=== PATIENT | female | born 1950 | race Caucasian/White ===

== ENCOUNTER → 2018-05-13 16:25 | Outpatient (CLI) | payer MEDICARE, OTHER, SELFPAY | PROVIDERS: Visit Provider Physician Assistant | DX: R30.0 Dysuria (principal) | CPT/HCPCS: 87077; 87086; 87186 ==

== ENCOUNTER 2018-11-26 20:49 | Emergency (ER) | payer MEDICARE, OTHER, SELFPAY ==
[2018-11-26 20:53] VITALS: BP 161/84; PULSE 91; RESP 15; TEMP 36.5; O2SAT 96
--- NOTE | 2018-11-26 20:58 | ED.FALL ---
HPI - Fall General Chief Complaint: Fall Stated Complaint: HEAD AND ARM INJURY S/P FALL Time Seen by Provider: 11/26/18 20:50 Source: patient and family Mode of arrival: ambulatory Limitations: no limitations History of Present Illness HPI Narrative: 68-year-old female nonsmoker with a history of diabetes, hyperlipidemia and hypothyroidism presents with a mechanical fall in which she fell, struck her head and injured her left wrist. She was on her boat and caring multiple objects which threw her off balance, she fell forward into the cock-up 8 and struck the left side of her head. She did not suffer a loss of consciousness, has no nausea or vomiting and takes no blood thinners. She has full recall of the event and denies any prodromal symptoms. She denies any alcohol or street drugs. She is acting at her baseline per her daughter. Additionally she fell onto an outstretched left wrist and has pain, particularly with any range of motion. MD complaint: fall Onset (ago): hour(s) Fall from: standing Fall witnessed: yes, by family Place fall occurred: other Loss of consciousness: none Prolonged down time: no Symptoms prior to fall: none Context: tripped/slipped Location of injury: head Location of injury - extremities: Left: arm Related Data Home Medications Medication Instructions Recorded Confirmed atorvastatin PO 05/13/18 05/13/18 buspirone PO 05/13/18 05/13/18 levothyroxine 125 mcg tablet 125 mcg PO DAILY 05/13/18 05/13/18 metformin PO 05/13/18 05/13/18 venlafaxine PO 05/13/18 05/13/18 Allergies Allergy/AdvReac Type Severity Reaction Status Date / Time Penicillins [PENICILLINS] Allergy Unknown Verified 11/26/18 20:58 Sulfa (Sulfonamide Allergy Unknown Verified 11/26/18 20:58 Antibiotics) [SULFA (SULFONAMIDE ANTIBIOTICS)] Review of Systems Constitutional Denies chills, Denies fever(s), Reports headache(s), Denies lethargy and Denies weakness Eyes Denies change in vision, Denies eye discharge, Denies irritation and Denies loss of vision ENT Ears, Nose, Mouth, and Throat: Denies change in voice, Reports headache(s), Denies neck pain and Denies sore throat Cardiovascular Denies chest pain, Denies irregular heart rhythm, Denies lightheadedness, Denies palpitations, Denies dyspnea, Denies dyspnea on exertion and Denies orthopnea Respiratory Denies cough, Denies dyspnea, Denies dyspnea on exertion and Denies wheezing Gastrointestinal Gastrointestinal: Denies abdominal pain, Denies change in bowel habits, Denies diarrhea, Denies nausea and Denies vomiting Genitourinary Denies hematuria, Denies flank pain, Denies urinary incontinence and Denies urinary urgency Musculoskeletal Reports joint swelling, Reports limited range of motion and Denies neck pain Integumentary/Breasts Denies pruritus, Denies erythema, Denies rash and Denies wounds Neurologic Denies confusion, Reports headache(s), Denies loss of vision and Denies weakness Psychiatric Denies anxiety, Denies confusion, Denies depression, Denies homicidal ideation and Denies suicidal ideation Endocrine Denies palpitations Hematologic/Lymphatic Denies easy bruising Allergic/Immunologic Denies wheezing Exam Narrative Exam Narrative: GENERAL: 68-year-old female appears stated age, GCS 15, obviously in pain and splinting her left wrist across her chest HEAD: Dried blood on left parietal is, when cleaned a 2 cm irregular laceration noted, relatively deep but no active bleeding, galea intact EYES: Pupils equal round and reactive. Extraocular motions intact. No scleral icterus. No injection or drainage. ENT: Nose without bleeding, purulent drainage or septal hematoma. Throat without erythema, tonsillar hypertrophy or exudate. Uvula midline. Airway patent. NECK: Trachea midline. No JVD or lymphadenopathy. Supple, nontender, no meningeal signs. CARDIOVASCULAR: Regular rate and rhythm without murmurs, gallops, or rubs. RESPIRATORY: Clear to auscultation. Breath sounds equal bilaterally. No wheezes, rales, or rhonchi. GASTROINTESTINAL: Abdomen soft, non-tender, nondistended. No hepato-splenomegaly, or palpable masses. No guarding. EXTREMITIES: No clubbing, cyanosis, or edema. No joint tenderness, effusion, or edema noted. BACK: Nontender without deformity or crepitance. No flank tenderness. NEURO: AOx3. SKIN: No rash or erythema. Initial Vital Signs Initial Vital Signs: Vital Signs Temperature 97.7 F 11/26/18 20:53 Pulse Rate 91 H 11/26/18 20:53 Respiratory Rate 15 11/26/18 20:53 Blood Pressure 161/84 H 11/26/18 20:53 Pulse Oximetry 96 11/26/18 20:53 PFS Social History Smoking Status: Never smoker Social History Smoking Status: Never smoker Procedures Laceration Repair Laceration 1: Site: scalp Side (If applicable): left Size (cm): 2 Description: stellate and irregular Depth: simple, single layer Local Anesthetic: lidocaine 1% and with epi Amount of anesthesia used (mL): 4 Pre-repair: wound explored, irrigated extensively and deep structures intact Skin layer closed with: arnav Orthopedic Splinting/Casting Injury #1: Side: left Upper Extremity Injury Location: wrist Upper Extremity Immobilizer: sling/shoulder immobilizer and sugar tong splint Post splinting neuro exam: intact Post splinting vascular exam: intact Placed by: Nursing Course Orders Ordered: ED Orders 11/26/18 20:59 CT head/brain wo con Stat 11/26/18 21:06 XR wrist LT min 3V Stat Discontinued Medications Hydrocodone Bitart/Acetaminophen (Vicodin Prepack) 1 bottle MISC SEEINSTR ONE Stop: 11/26/18 22:05 Last Admin: 11/26/18 22:12 Dose: 1 bottle Diphtheria/Tetanus/Acell Pertussis (Adacel) 0.5 ml IM .ONCE ONE Stop: 11/26/18 21:01 Last Admin: 11/26/18 21:05 Dose: 0.5 ml Vital Signs - 8 hr 11/26/18 20:53 11/26/18 22:12 Temperature 97.7 F Pulse Rate 91 H 71 Respiratory Rate 15 15 Blood Pressure 161/84 H Blood Pressure [Right Arm] 140/68 Pulse Oximetry 96 97 MDM - Fall Imaging Data CT scan - head: Radiologist's impression: Chart Viewer Diagnostics DATE TYPE STATUS AUTHOR Hx 11/26/18 21:06 James Estrella 11/26/18 20:59 James Estrella Marie A 68, F0 1950 DEP ER, ED.LOC - Main ED: R08 96.162kg Fall Search Chart No Data to Display ONSET 11/26/18 22:12 Ivonne Melendez F [address] [address] [address] Scan Report Signed Patient: Ivonne Melendez AMR#: [id number] : 1950cct:[id number] Age/Sex: 68 / FDate of Service: 11/26/18 Loc: ED Accession Number: [id number] Procedure: CT head/brain wo con Ordering Provider: Alverto Murillo D.O. PROCEDURE: CT HEAD/BRAIN WO CON INDICATIONS: head injury, bleeding, confusion TECHNIQUE: Noncontrast 4.5 mm thick angled axial sections acquired from the foramen magnum to the vertex, with coronal and sagittal reformats. For radiation dose reduction, the following was used: automated exposure control, adjustment of mA and/or kV according to patient size. COMPARISON: [facility], , STROKE PROTOCOL, 08/07/2014, 7:15. FINDINGS: Image quality: Excellent. CSF spaces: Basal cisterns are patent. No extra-axial fluid collections. The ventricles are symmetric in size and shape. Brain: No intracranial bleeds or masses. There is cerebral volume loss for age, with resultant ventricular and sulcal prominence. There are periventricular and deep white matter chronic small vessel ischemic changes. There is intracranial internal carotid artery atherosclerosis. Skull and face: Calvarium and visualized facial bones appear intact, without suspicious lesions. Sinuses: Visualized sinuses and mastoids are clear. IMPRESSION: No acute intracranial abnormality. Dictated by: James Estrella M.D. on 11/26/2018 at 21:37 Approved by: James Estrella M.D. on 11/26/2018 at 21:38 Wrist Xray: Radiologist's impression: Ivonne Melendez 68 F [address] [address] XRay Report Signed Patient: Ivonne Melendez AMR#: [id number] : 9Acct:[id number] Age/Sex: 68 / FDate of Service: 11/26/18 Loc: ED Accession Number: [id number] Procedure: XR wrist LT min 3V Ordering Provider: Alverto Murillo D.O. PROCEDURE: XR WRIST LT MIN 3V INDICATIONS: fall on outstretched wrist, pain over distal radius TECHNIQUE: 3 views of the wrist were acquired. COMPARISON: None. FINDINGS: Bones: Linear transverse lucency within the distal radial metaphysis. Joint space narrowing and periarticular osteophyte formation at the scaphotrapezial and first carpometacarpal joints. Scaphoid view: Not requested Soft tissues: No suspicious soft tissue calcifications. IMPRESSION: Distal radial fracture. Dictated by: James Estrella M.D. on 11/26/2018 at 21:36 Discharge Plan Departure Patient Disposition: Home Clinical Impression: Laceration of scalp Qualifiers: Encounter type: initial encounter Qualified Code(s): S01.01XA - Laceration without foreign body of scalp, initial encounter Distal radius fracture, left Qualifiers: Encounter type: initial encounter Fracture type: closed Fracture morphology: unspecified fracture morphology Qualified Code(s): S52.502A - Unspecified fracture of the lower end of left radius, initial encounter for closed fracture Discharge Date/Time: 11/26/18 22:22 Interventions: ED Discharge Assessment Last Done: 11/26/18 22:22 Instructions: How to Prevent Falls Activity Restrictions/Additional Instructions: Please keep the wound clean and dry to the best of your ability. Please monitor for signs of infection such as redness to the skin or increasing pain. Have the arnav removed by your doctor in about 7 days. If you are unable to get into your doctor, we would be happy to remove the arnav in that same timeframe. *You have been diagnosed with [scalp laceration and distal radius fracture] *What to do: *Take medications as directed *Follow up with [facility] in 2-3 days, call for an appointment. Let them know you were seen in the Emergency Department and that we ask that you be seen in follow up *Return to ER if you should have any new, worsening or concerning symptoms Prescriptions: No Action levothyroxine [Synthroid] 125 mcg tablet 125 mcg PO DAILY RF: 0 venlafaxine PO RF: 0 atorvastatin PO RF: 0 metformin PO RF: 0 buspirone PO RF: 0 Referrals: Vi Rasheed MD [Physician] -
[2018-11-26] MEDS: TET,DIPH,PERTUSS(ACELL),VAC/PF 0.5 ML SYRINGE IM (21:05)
--- NOTE | 2018-11-26 21:06 | DI.RAD.S_ITS ---
PROCEDURE: XR WRIST LT MIN 3V INDICATIONS: fall on outstretched wrist, pain over distal radius TECHNIQUE: 3 views of the wrist were acquired. COMPARISON: None. FINDINGS: Bones: Linear transverse lucency within the distal radial metaphysis. Joint space narrowing and periarticular osteophyte formation at the scaphotrapezial and first carpometacarpal joints. Scaphoid view: Not requested Soft tissues: No suspicious soft tissue calcifications. IMPRESSION: Distal radial fracture. Dictated by: James Estrella M.D. on 11/26/2018 at 21:36 Approved by: James Estrella M.D. on 11/26/2018 at 21:37
[2018-11-26 22:12] VITALS: BP 140/68; PULSE 71; RESP 15; O2SAT 97
[2018-11-26] MEDS: HYDROCODONE/ACET 5/325 PREPACK 1 BOTTLE MISC (22:12)
--- NOTE | 2018-11-27 02:51 | ED_ITS ---
HPI - Fall General Chief Complaint: Fall Stated Complaint: HEAD AND ARM INJURY S/P FALL Time Seen by Provider: 11/26/18 20:50 Source: patient and family Mode of arrival: ambulatory Limitations: no limitations History of Present Illness HPI Narrative: 68-year-old female nonsmoker with a history of diabetes, hyperlipidemia and hypothyroidism presents with a mechanical fall in which she fell, struck her head and injured her left wrist. She was on her boat and caring multiple objects which threw her off balance, she fell forward into the cock-up 8 and struck the left side of her head. She did not suffer a loss of consciousness, has no nausea or vomiting and takes no blood thinners. She has full recall of the event and denies any prodromal symptoms. She denies any alcohol or street drugs. She is acting at her baseline per her daughter. Additionally she fell onto an outstretched left wrist and has pain, particularly with any range of motion. MD complaint: fall Onset (ago): hour(s) Fall from: standing Fall witnessed: yes, by family Place fall occurred: other Loss of consciousness: none Prolonged down time: no Symptoms prior to fall: none Context: tripped/slipped Location of injury: head Location of injury - extremities: Left: arm Related Data Home Medications Medication Instructions Recorded Confirmed atorvastatin PO 05/13/18 05/13/18 buspirone PO 05/13/18 05/13/18 levothyroxine 125 mcg tablet 125 mcg PO DAILY 05/13/18 05/13/18 metformin PO 05/13/18 05/13/18 venlafaxine PO 05/13/18 05/13/18 Allergies Allergy/AdvReac Type Severity Reaction Status Date / Time Penicillins [PENICILLINS] Allergy Unknown Verified 11/26/18 20:58 Sulfa (Sulfonamide Allergy Unknown Verified 11/26/18 20:58 Antibiotics) [SULFA (SULFONAMIDE ANTIBIOTICS)] Review of Systems Constitutional Denies chills, Denies fever(s), Reports headache(s), Denies lethargy and Denies weakness Eyes Denies change in vision, Denies eye discharge, Denies irritation and Denies loss of vision ENT Ears, Nose, Mouth, and Throat: Denies change in voice, Reports headache(s), Denies neck pain and Denies sore throat Cardiovascular Denies chest pain, Denies irregular heart rhythm, Denies lightheadedness, Denies palpitations, Denies dyspnea, Denies dyspnea on exertion and Denies orthopnea Respiratory Denies cough, Denies dyspnea, Denies dyspnea on exertion and Denies wheezing Gastrointestinal Gastrointestinal: Denies abdominal pain, Denies change in bowel habits, Denies diarrhea, Denies nausea and Denies vomiting Genitourinary Denies hematuria, Denies flank pain, Denies urinary incontinence and Denies urinary urgency Musculoskeletal Reports joint swelling, Reports limited range of motion and Denies neck pain Integumentary/Breasts Denies pruritus, Denies erythema, Denies rash and Denies wounds Neurologic Denies confusion, Reports headache(s), Denies loss of vision and Denies weakness Psychiatric Denies anxiety, Denies confusion, Denies depression, Denies homicidal ideation and Denies suicidal ideation Endocrine Denies palpitations Hematologic/Lymphatic Denies easy bruising Allergic/Immunologic Denies wheezing Exam Narrative Exam Narrative: GENERAL: 68-year-old female appears stated age, GCS 15, obviously in pain and splinting her left wrist across her chest HEAD: Dried blood on left parietal is, when cleaned a 2 cm irregular laceration noted, relatively deep but no active bleeding, galea intact EYES: Pupils equal round and reactive. Extraocular motions intact. No scleral icterus. No injection or drainage. ENT: Nose without bleeding, purulent drainage or septal hematoma. Throat without erythema, tonsillar hypertrophy or exudate. Uvula midline. Airway patent. NECK: Trachea midline. No JVD or lymphadenopathy. Supple, nontender, no meningeal signs. CARDIOVASCULAR: Regular rate and rhythm without murmurs, gallops, or rubs. RESPIRATORY: Clear to auscultation. Breath sounds equal bilaterally. No wheezes, rales, or rhonchi. GASTROINTESTINAL: Abdomen soft, non-tender, nondistended. No hepato- splenomegaly, or palpable masses. No guarding. EXTREMITIES: No clubbing, cyanosis, or edema. No joint tenderness, effusion, or edema noted. BACK: Nontender without deformity or crepitance. No flank tenderness. NEURO: AOx3. SKIN: No rash or erythema. Initial Vital Signs Initial Vital Signs: Vital Signs Temperature 97.7 F 11/26/18 20:53 Pulse Rate 91 H 11/26/18 20:53 Respiratory Rate 15 11/26/18 20:53 Blood Pressure 161/84 H 11/26/18 20:53 Pulse Oximetry 96 11/26/18 20:53 PFS Social History Smoking Status: Never smoker Social History Smoking Status: Never smoker Procedures Laceration Repair Laceration 1: Site: scalp Side (If applicable): left Size (cm): 2 Description: stellate and irregular Depth: simple, single layer Local Anesthetic: lidocaine 1% and with epi Amount of anesthesia used (mL): 4 Pre-repair: wound explored, irrigated extensively and deep structures intact Skin layer closed with: arnav Orthopedic Splinting/Casting Injury #1: Side: left Upper Extremity Injury Location: wrist Upper Extremity Immobilizer: sling/shoulder immobilizer and sugar tong splint Post splinting neuro exam: intact Post splinting vascular exam: intact Placed by: Nursing Course Orders Ordered: ED Orders 11/26/18 20:59 CT head/brain wo con Stat 11/26/18 21:06 XR wrist LT min 3V Stat Discontinued Medications Hydrocodone Bitart/Acetaminophen (Vicodin Prepack) 1 bottle MISC SEEINSTR ONE Stop: 11/26/18 22:05 Last Admin: 11/26/18 22:12 Dose: 1 bottle Diphtheria/Tetanus/Acell Pertussis (Adacel) 0.5 ml IM .ONCE ONE Stop: 11/26/18 21:01 Last Admin: 11/26/18 21:05 Dose: 0.5 ml Vital Signs - 8 hr 11/26/18 20:53 11/26/18 22:12 Temperature 97.7 F Pulse Rate 91 H 71 Respiratory Rate 15 15 Blood Pressure 161/84 H Blood Pressure [Right Arm] 140/68 Pulse Oximetry 96 97 MDM - Fall Imaging Data CT scan - head: Radiologist's impression: Chart Viewer Diagnostics DATE TYPE STATUS AUTHOR Hx 11/26/18 21:06 James Estrella 11/26/18 20:59 James Estrella Marie A 68, F0 1950 DEP ER, ED.LOC - Main ED: R08 96.162kg Fall Search Chart No Data to Display ONSET 11/26/18 22:12 Ivonne Melendez F [address] [address] [address] Scan Report Signed Patient: Ivonne Melendez AMR#: [id number] : 1950cct:[id number] Age/Sex: 68 / FDate of Service: 11/26/18 Loc: ED Accession Number: [id number] Procedure: CT head/brain wo con Ordering Provider: Alverto Murillo D.O. PROCEDURE: CT HEAD/BRAIN WO CON INDICATIONS: head injury, bleeding, confusion TECHNIQUE: Noncontrast 4.5 mm thick angled axial sections acquired from the foramen magnum to the vertex, with coronal and sagittal reformats. For radiation dose reduction, the following was used: automated exposure control, adjustment of mA and/or kV according to patient size. COMPARISON: [facility], , STROKE PROTOCOL, 08/07/2014, 7:15. FINDINGS: Image quality: Excellent. CSF spaces: Basal cisterns are patent. No extra-axial fluid collections. The ventricles are symmetric in size and shape. Brain: No intracranial bleeds or masses. There is cerebral volume loss for age, with resultant ventricular and sulcal prominence. There are periventricular and deep white matter chronic small vessel ischemic changes. There is intracranial internal carotid artery atherosclerosis. Skull and face: Calvarium and visualized facial bones appear intact, without suspicious lesions. Sinuses: Visualized sinuses and mastoids are clear. IMPRESSION: No acute intracranial abnormality. Dictated by: aJmes Estrella M.D. on 11/26/2018 at 21:37 Approved by: James Estrella M.D. on 11/26/2018 at 21:38 Wrist Xray: Radiologist's impression: Ivonne Melendez 68 F [address] [address] XRay Report Signed Patient: Ivonne Melendez AMR#: [id number] : 9Acct:[id number] Age/Sex: 68 / FDate of Service: 11/26/18 Loc: ED Accession Number: [id number] Procedure: XR wrist LT min 3V Ordering Provider: Alverto Murillo D.O. PROCEDURE: XR WRIST LT MIN 3V INDICATIONS: fall on outstretched wrist, pain over distal radius TECHNIQUE: 3 views of the wrist were acquired. COMPARISON: None. FINDINGS: Bones: Linear transverse lucency within the distal radial metaphysis. Joint space narrowing and periarticular osteophyte formation at the scaphotrapezial and first carpometacarpal joints. Scaphoid view: Not requested Soft tissues: No suspicious soft tissue calcifications. IMPRESSION: Distal radial fracture. Dictated by: James Estrella M.D. on 11/26/2018 at 21:36 Discharge Plan Departure Patient Disposition: Home Clinical Impression: Laceration of scalp Qualifiers: Encounter type: initial encounter Qualified Code(s): S01.01XA - Laceration without foreign body of scalp, initial encounter Distal radius fracture, left Qualifiers: Encounter type: initial encounter Fracture type: closed Fracture morphology: unspecified fracture morphology Qualified Code(s): S52.502A - Unspecified fracture of the lower end of left radius, initial encounter for closed fracture Discharge Date/Time: 11/26/18 22:22 Interventions: ED Discharge Assessment Last Done: 11/26/18 22:22 Instructions: How to Prevent Falls Activity Restrictions/Additional Instructions: Please keep the wound clean and dry to the best of your ability. Please monitor for signs of infection such as redness to the skin or increasing pain. Have the arnav removed by your doctor in about 7 days. If you are unable to get into your doctor, we would be happy to remove the arnav in that same timeframe. *You have been diagnosed with [scalp laceration and distal radius fracture] *What to do: *Take medications as directed *Follow up with [facility] in 2-3 days, call for an appointment. Let them know you were seen in the Emergency Department and that we ask that you be seen in follow up *Return to ER if you should have any new, worsening or concerning symptoms Prescriptions: No Action levothyroxine [Synthroid] 125 mcg tablet 125 mcg PO DAILY RF: 0 venlafaxine PO RF: 0 atorvastatin PO RF: 0 metformin PO RF: 0 buspirone PO RF: 0 Referrals: Vi Rasheed MD [Physician] -
== END 2018-11-26 22:22 | disposition home or self-care (01) ==
PROVIDERS: Emergency Provider Emergency Medicine
DX: S01.01XA Laceration without foreign body of scalp, initial encounter (principal); S52.502A Unspecified fracture of the lower end of left radius, initial encounter for closed fracture; W01.0XXA Fall on same level from slipping, tripping and stumbling without subsequent striking against object, initial encounter; Z23 Encounter for immunization
CPT/HCPCS: 12001; 29125; 70450; 73110; 90471; 99283; 99284; 90715

== ENCOUNTER 2020-11-07 19:24 | Emergency (ER) | payer MEDICARE, OTHER, SELFPAY ==
[2020-11-07] VITALS (11 sets, daily range): BP systolic 140–166; BP diastolic 67–85; PULSE 68–78; RESP 16–23; TEMP 36.1; O2SAT 93–97; BMI 30.4
--- NOTE | 2020-11-07 19:43 | DI.RAD.S_ITS ---
PROCEDURE: XR CHEST 1V INDICATIONS: chest pain TECHNIQUE: One view of the chest was acquired. COMPARISON: [facility], , CHEST 1 VIEW, 05/19/2016, 11:09. FINDINGS: Surgical changes and devices: None. Lungs and pleura: Lungs are clear. No pleural effusions or pneumothorax. Mediastinum: Mediastinal contours appear normal. Heart size is normal. Bones and chest wall: No suspicious bony lesions. Overlying soft tissues appear unremarkable. IMPRESSION: No acute cardiopulmonary abnormality. Dictated by: Solomon Pettit M.D. on 11/07/2020 at 20:34 Approved by: Solomon Pettit M.D. on 11/07/2020 at 20:35
[2020-11-07 20:20] LABS: Alanine Aminotransferase 22 IU/L (<35); Albumin 4.2 g/dL (3.5-5.0); Albumin Globulin Ratio 1.3 (1.0-2.8); Alkaline Phosphatase 60 U/L (38-126); Aspartate Aminotransferase 24 IU/L (14-36); BUN Creatinine Ratio 20.4 (6-22); Bilirubin Total 0.4 mg/dL (0.2-1.3); Blood Urea Nitrogen 21 mg/dL (7-17); Calcium 9.5 mg/dL (8.4-10.2); Carbon Dioxide 25 mmol/L (22-32); Chloride 104 mmol/L (98-107); Creatine Kinase 114 U/L (30-135); Estimated Glomerular Filt Rate 52.8 mL/min (>60); Globulin 3.2 g/dL (1.7-4.1); Glucose 167 mg/dL (80-110); HEMOLYSIS 24 (0-50); Lipase 114 U/L (23-300); Potassium 4.1 mmol/L (3.4-5.1); Sodium 140 mmol/L (137-145); Total Protein 7.4 g/dL (6.3-8.2)
[2020-11-07 20:23] LABS: Add Manual Diff / Slide Review NO; Basophils Absolute Auto 0 /uL (0-100); Basophils Percent Auto 0.6 % (0-2); Eosinophils Absolute Auto 100 /uL (0-450); Eosinophils Percent Auto 1.5 % (2-4); Hematocrit 38.5 % (36-46); Hemoglobin 12.8 g/dL (12.0-16.0); Lymphocytes Absolute Auto 2000 /uL (1100-4500); Mean Corpuscular HGB Conc 33.3 % (30-36); Mean Corpuscular Hemoglobin 29.7 PG (26-34); Mean Corpuscular Volume 89.4 fL (80-100); Monocytes Absolute Auto 600 /uL (0-900); Monocytes Percent Auto 7.7 % (3-14); Neutrophils Absolute Auto 5200 /uL (1500-7000); Neutrophils Percent Auto 65.2 % (50-75); Platelet Count 231 X10^3/uL (150-400); Red Blood Cell Count 4.31 X10^6/uL (4.0-5.2); Red Cell Distribution Width 13.3 % (11.6-14.8)
[2020-11-07 20:31] LABS: Troponin I < 0.012 ng/mL (0.01-0.034)
[2020-11-07 20:35] LABS: CKMB % Relative Index 0.7 % (1.5-5.0); Creatine Kinase MB 0.83 ng/mL (<2.37)
[2020-11-07 20:38] LABS: Bacteria Urine Few (2-10); Culture Indicated Urine Specimen Cultured; RBC Urine 1-5/HPF (0-5/HPF); Squamous Epithelial Cell Urine 1-5 /HPF (0-5/HPF); WBC Urine 5-10/HPF (0-5/HPF)
--- NOTE | 2020-11-07 21:11 | PC.NURSE ---
patient was cleaning up her dishes today and developed chest pain and pressure in her sternal area. The pain radiated to her anterior throat and jaw and it became hard to swallow or speak. She denies a history of this episode. She also voluntered that she has trouble finishing her sentences because her constantly interupts her. She denies feeling unsafe at home and denied wanting him barred from being with her today. She stated that he drinks alot and there are rules at home and he gets mad if she breaks the rules.
--- NOTE | 2020-11-07 22:37 | ED.CHESTPAIN ---
HPI - Chest Pain General Chief Complaint: Chest Pain Stated Complaint: CHEST PAIN Time Seen by Provider: 11/07/20 22:36 History of Present Illness HPI narrative: 70-year-old woman with a history of hyperlipidemia, depression, diabetes, hypothyroidism presents with a 40 minutes episode of chest pain today. She describes it as starting approximately 6:00 p.m. tonight while she was doing dishes after a nice dinner. It was associated with dyspnea and jaw pain her gave her 81 mg of aspirin and by the time they were able to get to the emergency room the pain had completely resolved. She did not complain of nausea, vomiting, diaphoresis, abdominal pain, headache, acute neurologic changes and has not had any recent fevers or cough. Related Data Home Medications Medication Instructions Recorded Confirmed atorvastatin PO 05/13/18 05/13/18 buspirone PO 05/13/18 05/13/18 levothyroxine 125 mcg tablet 125 mcg PO DAILY 05/13/18 05/13/18 metformin PO 05/13/18 05/13/18 venlafaxine PO 05/13/18 05/13/18 Allergies Allergy/AdvReac Type Severity Reaction Status Date / Time Penicillins [PENICILLINS] Allergy Unknown Verified 11/26/18 20:58 Sulfa (Sulfonamide Allergy Unknown Verified 11/26/18 20:58 Antibiotics) [SULFA (SULFONAMIDE ANTIBIOTICS)] Review of Systems Review of Systems Narrative: Remainder of complete review of systems is otherwise unremarkable except for that included in the HPI. Patient History Medical History Depression Diabetes Hyperlipidemia Hypothyroid Social History Smoking Status: Never smoker Smoking Status: Never smoker alcohol intake frequency: holidays/special occasions only Substance Use Type: does not use Exam Narrative Exam Narrative: General: Healthy appearing, in no acute distress. Able to give a complete and coherent history. Well-nourished well-developed HEENT: Moist mucous membranes, normal sclera with reactive pupils, Neck: No JVD, supple Respiratory: Lungs are clear to auscultation, no wheezing no rales no rhonchi. Full and symmetrical air movement Cardiac: Regular rate and rhythm no murmurs no bruits Abdomen: Soft, nontender, good bowel tones, no flank pain Skin: Warm and dry, no rashes Neurologic: Grossly neurologically intact with no obvious asymmetries or abnormalities Extremities: No trauma, well perfused Psych: Cooperative, appropriate insight and affect Initial Vital Signs Initial Vital Signs: Vital Signs Temperature 97.0 F L 11/07/20 19:41 Pulse Rate 77 11/07/20 19:41 Respiratory Rate 16 11/07/20 19:41 Blood Pressure 148/78 H 11/07/20 19:41 Pulse Oximetry 97 11/07/20 19:41 Scores HEART Score Heart Score history: Slightly Suspicious Heart Score EKG: Normal Heart Score Age: > or = 65 years old Heart Score risk factors: 1-2 risk factors Heart Score troponin: < or = to normal limit Heart Score Total: 3 Course Orders Ordered: ED Orders 11/07/20 19:43 XR chest 1V Stat EKG-12 Lead Stat 11/07/20 19:50 Urine Culture Stat Urine Microscopic Stat 11/07/20 19:55 Complete Blood Count AUTO DIFF Stat Comprehensive Metabolic Panel Stat Lipase Stat Troponin & CK Cardiac Panel Stat 11/07/20 22:46 EKG-12 Lead Stat 11/07/20 23:00 Troponin I Stat Vital Signs Vital signs: Vital Signs - 8 hr 11/07/20 19:41 11/07/20 20:49 11/07/20 20:53 Temperature 97.0 F L Pulse Rate 77 75 72 Respiratory Rate 16 20 19 Blood Pressure 148/78 H 143/67 H Pulse Oximetry 97 97 96 11/07/20 21:00 11/07/20 21:30 11/07/20 22:00 Temperature Pulse Rate 74 70 70 Respiratory Rate 18 21 20 Blood Pressure 156/74 H 151/72 H 149/67 H Pulse Oximetry 96 95 94 11/07/20 22:30 11/07/20 22:54 11/07/20 22:56 Temperature Pulse Rate 69 78 72 Respiratory Rate 20 23 Blood Pressure 151/68 H 140/85 166/84 H Pulse Oximetry 96 95 94 11/07/20 23:00 11/07/20 23:01 Temperature Pulse Rate 68 69 Respiratory Rate 22 19 Blood Pressure 145/72 H Pulse Oximetry 93 97 MDM - Chest Pain Medical Records Data Attestation: I reviewed the patient's medical records. Lab Data Attestation: I reviewed the patient's lab results. Result diagrams: 11/07/20 19:55 11/07/20 19:55 Labs: Lab Results 11/07/20 11/07/20 11/07/20 Range/Units 19:50 19:55 19:55 WBC 8.0 (4.5-11.0) X10^3/uL RBC 4.31 (4.0-5.2) X10^6/uL Hgb 12.8 (12.0-16.0) g/dL Hct 38.5 (36-46) % MCV 89.4 (80-100) fL MCH 29.7 (26-34) PG MCHC 33.3 (30-36) % RDW 13.3 (11.6-14.8) % Plt Count 231 (150-400) X10^3/uL Neut % (Auto) 65.2 (50-75) % Lymph % (Auto) 25.0 (25-40) % Craig % (Auto) 7.7 (3-14) % Eos % (Auto) 1.5 L (2-4) % Baso % (Auto) 0.6 (0-2) % Neut # (Auto) 5200 (0317-8625) /uL Lymph # (Auto) 2000 (8818-7479) /uL Craig # (Auto) 600 (0-900) /uL Eos # (Auto) 100 (0-450) /uL Baso # (Auto) 0 (0-100) /uL Sodium 140 (137-145) mmol/L Potassium 4.1 (3.4-5.1) mmol/L Chloride 104 (98-107) mmol/L Carbon Dioxide 25 (22-32) mmol/L BUN 21 H (7-17) mg/dL Creatinine 1.03 (0.52-1.04) mg/dL Estimated GFR 52.8 L (>60) mL/min BUN/Creatinine Ratio 20.4 (6-22) Glucose 167 H (80-110) mg/dL Calcium 9.5 (8.4-10.2) mg/dL Total Bilirubin 0.4 (0.2-1.3) mg/dL AST 24 (14-36) IU/L ALT 22 (<35) IU/L Alkaline Phosphatase 60 (38-126) U/L Total Creatine Kinase 114 (30-135) U/L CK-MB (CK-2) 0.83 (<2.37) ng/mL CK-MB (CK-2) Rel Index 0.7 L (1.5-5.0) % Troponin I < 0.012 (0.01-0.034) ng/mL Total Protein 7.4 (6.3-8.2) g/dL Albumin 4.2 (3.5-5.0) g/dL Globulin 3.2 (1.7-4.1) g/dL Albumin/Globulin Ratio 1.3 (1.0-2.8) Lipase 114 (23-300) U/L Urine RBC 1-5/hpf (0-5/HPF) Urine WBC 5-10/hpf H (0-5/HPF) Ur Squamous Epith Cells 1-5 /hpf (0-5/HPF) Urine Bacteria Few (2-10) H (None) Ur Culture Indicated? Specimen cultured 11/07/20 Range/Units 23:00 WBC (4.5-11.0) X10^3/uL RBC (4.0-5.2) X10^6/uL Hgb (12.0-16.0) g/dL Hct (36-46) % MCV (80-100) fL MCH (26-34) PG MCHC (30-36) % RDW (11.6-14.8) % Plt Count (150-400) X10^3/uL Neut % (Auto) (50-75) % Lymph % (Auto) (25-40) % Craig % (Auto) (3-14) % Eos % (Auto) (2-4) % Baso % (Auto) (0-2) % Neut # (Auto) (4839-3894) /uL Lymph # (Auto) (3002-9682) /uL Craig # (Auto) (0-900) /uL Eos # (Auto) (0-450) /uL Baso # (Auto) (0-100) /uL Sodium (137-145) mmol/L Potassium (3.4-5.1) mmol/L Chloride (98-107) mmol/L Carbon Dioxide (22-32) mmol/L BUN (7-17) mg/dL Creatinine (0.52-1.04) mg/dL Estimated GFR (>60) mL/min BUN/Creatinine Ratio (6-22) Glucose (80-110) mg/dL Calcium (8.4-10.2) mg/dL Total Bilirubin (0.2-1.3) mg/dL AST (14-36) IU/L ALT (<35) IU/L Alkaline Phosphatase (38-126) U/L Total Creatine Kinase (30-135) U/L CK-MB (CK-2) (<2.37) ng/mL CK-MB (CK-2) Rel Index (1.5-5.0) % Troponin I < 0.012 (0.01-0.034) ng/mL Total Protein (6.3-8.2) g/dL Albumin (3.5-5.0) g/dL Globulin (1.7-4.1) g/dL Albumin/Globulin Ratio (1.0-2.8) Lipase (23-300) U/L Urine RBC (0-5/HPF) Urine WBC (0-5/HPF) Ur Squamous Epith Cells (0-5/HPF) Urine Bacteria (None) Ur Culture Indicated? Urine Dip Bedside Urine Glucose Negative Bedside Urine Bilirubin - Negative Bedside Urine Ketone - Negative Urine Specific [place] 1.030 Bedside Urine Occult Blood +/- Bedside Urine pH 6 Bedside Urine Protein - Negative Bedside Urine Urobilinogen - Negative Bedside Urine Nitrite - Negative Bedside Urine Leukocytes + 70 Esterase Imaging Data Chest x-ray: Radiologist's Impression: FINDINGS: Surgical changes and devices: None. Lungs and pleura: Lungs are clear. No pleural effusions or pneumothorax. Mediastinum: Mediastinal contours appear normal. Heart size is normal. Bones and chest wall: No suspicious bony lesions. Overlying soft tissues appear unremarkable. IMPRESSION: No acute cardiopulmonary abnormality. Dictated by: Solomon Pettit M.D. on 11/07/2020 at 20:34 ECG Data Attestation: I personally reviewed and interpreted this ECG as follows: Interpretation: Sinus rhythm at a rate of 81 Normal axis, normal intervals No acute ischemic changes Repeat EKG Sinus rhythm at a rate of 66 Normal intervals and axis No acute ischemic changes MDM Narrative Medical decision making narrative: 70-year-old woman presents with chest pain while standing and doing dishes after dinner this evening. She does have a history of diabetes but has never had cardiac or stroke issues previously. Initial labs chest x-ray EKG and troponin are all reassuring. Repeat troponin and EKG continued to be completely within normal limits. At this point I do not suspect pneumonia, pneumothorax, cardiomyopathy, acute coronary syndrome, or reflux. With symptoms entirely resolved I believe she is safe for home discharge. I will recommend follow-up with her primary care physician and she may be an excellent person for an outpatient nuclear medicine stress test to help further stratify cardiac risk factors. I have encouraged her to return to the emergency department should symptoms worsen. Discharge Plan Departure Patient Disposition: Home Clinical Impression: Atypical chest pain Instructions: DI for Atypical Chest Pain Activity Restrictions/Additional Instructions: Thank you for coming in today I am glad to say that I am not seeing any evidence of an acute heart attack, pneumonia collapsed lung or other life-threatening explanation to explain the 40 minutes of pain you experienced this evening. I would recommend that you follow-up with your primary care physician in the near future. I do think that you would benefit from having a nuclear medicine stress test to make sure that there is no other issues we should pursue regarding your heart health I have given you copies of today's ER note which includes all of the blood work and imaging studies done as well as copies of the EKGs that were done in the ER. Please share all of this with your primary care physician I wish you the best Prescriptions: No Action levothyroxine [Synthroid] 125 mcg tablet 125 mcg PO DAILY RF: 0 venlafaxine PO RF: 0 atorvastatin PO RF: 0 metformin PO RF: 0 buspirone PO RF: 0
[2020-11-07 23:28] LABS: Troponin I < 0.012 ng/mL (0.01-0.034)
[2020-11-08 00:51] VITALS: BP 134/85; PULSE 64; RESP 16; O2SAT 93
== END 2020-11-08 00:52 | disposition home or self-care (01) ==
PROVIDERS: Emergency Provider Emergency Medicine
DX: R07.89 Other chest pain (principal)
CPT/HCPCS: 36415; 71045; 80053; 81003; 81015; 82550; 82553; 83690; 84484; 85025; 87086; 93005; 99283; 99284

== ENCOUNTER → 2021-04-25 15:39 | Outpatient (CLI) | payer MEDICARE, OTHER, SELFPAY ==
[2021-04-25 17:00] LABS: COVID19 -Nasal RAPID Negative (Negative)
== END ==
PROVIDERS: Referring Provider Nurse Practitioner Family; Visit Provider Nurse Practitioner Family
DX: Z20.822 Contact with and (suspected) exposure to COVID-19 (principal)
CPT/HCPCS: 87635

== ENCOUNTER → 2021-04-26 15:03 | Outpatient (CLI) | payer MEDICARE, OTHER, SELFPAY ==
--- NOTE | 2021-04-27 10:28 | DI.NM.S_ITS ---
DATE OF SERVICE: PROCEDURE: Exercise stress test. DATE OF STUDY: April 26, 2021. INDICATIONS: Chest pain with underlying diabetes mellitus. CARDIAC STRESS: The patient underwent exercise stress test under the supervision of an attending staff. The patient walked on King protocol for 4 minutes and 27 seconds, achieved 101 percent of target heart rate, 7 METs of workload and functional aerobic impairment positive 18 percent. Baseline blood pressure 110/80 mmHg. Peak blood pressure 170/82 mmHg. No chest pain. [place] shortness of breath. Baseline rhythm was sinus. During stress, there were no convincing significant ischemic changes or arrhythmias. CONCLUSION: 1. Exercise stress test is negative for inducible ischemia. 2. Normal hemodynamic response. 3. Diminished exercise tolerance. 4. No significant arrhythmias. 5. No chest pain but had shortness of breath during exercise. Overall low- risk exercise stress test. Nora Ivonne - ROSIO/jaden/cs doc#: [id number]/job#: [id number] dd: 04/26/2021 17:44:00 dt: 04/26/2021 18:25:00 DICTATING /COPIES TO: Shae Soriano MD COPIES MNE: CHRISTINE;
== END ==
PROVIDERS: Referring Provider Internal Medicine Cardiovascular Disease; Visit Provider Internal Medicine Cardiovascular Disease
DX: R07.9 Chest pain, unspecified (principal); E11.9 Type 2 diabetes mellitus without complications; R06.02 Shortness of breath
CPT/HCPCS: 93017

== ENCOUNTER 2022-03-13 09:11 | Outpatient (RCR) | payer MEDICARE, OTHER, SELFPAY ==
--- NOTE | 2022-03-13 10:58 | ST.OPIE ---
Visit Care Team Role Provider Type Roxanne Mccoy MD Family Provider Non-Staff Primary Care Provider Specialty: Medical Address: [address] [place] [address], [id number] Email: Vicente Higgins MD Attending Provider Physician Referring Provider Specialty: Ear, Nose, Throat Address: [address] [place] [address], [id number] Email: [email or web address] Speech-Language Pathology Initial Evaluation [employer]P SALES Clinical Swallow Evaluation Start: 03/13/22 09:23 Freq: Status: Active Protocol: Document 03/13/22 09:23 LNK (Rec: 03/13/22 10:58 LNK [id number]) Clinical Swallow Evaluation Session Time Visit Start Time 09:30 Visit Stop Time 10:15 Total Visit Minutes 45 Visit Information Visit Number 1 Insurance Information [facility] Referral Referring Provider Dr. Higgins, ENT; PCP is Dr. Roxanne Mccoy, at [facility] Reason for Referral dysphagia Setting Assessment Location Outpatient Care Visit Type Note Type Initial evaluation Patient Information Identification Type Name,Address History Pt is a 72 year old female seen for a clinical swallow assessment at the referral of Dr. Higgins. According to the pt, she will periodically get a sense of globus mid-chest after swallowing. She was unable to describe the foods that can result in this sensation. She did mention that water can result in globus as well. She also reported that she has choked in the past. Subjective Observations Pt appeared to be stressed. Her speech, initially, was unintelligible, rapid and dysfluent. She was able to speak intelligibly after a couple of minutes. Pt reported that she gets very stressed when asked questions. She reported that her does not like her to speak and cuts her off when she tries. This increases her anxiety. Pt also reported that she has fallen ~4 times and has had concussions where she had lost consciousness in the past. Reported by Patient Other Symptoms Difficulty swallowing liquids, Difficulty swallowing solids, Food gets stuck Current Diet Regular,Thin liquids Baseline Feeding Method Independent in self-feeding Objective Assessment Mental Status Alert,Responsive,Cooperative Oral Integrity WFL Dentition Within normal limits Lip Function Within normal limits Observation of Lips at Rest Symmetrical Pucker Within normal limits Lip Retraction Within normal limits Alternating Pucker/Lip Retraction Within normal limits Tongue Function Within normal limits Observations of Tongue at Rest Within normal limits Tongue Protrusion Within normal limits Tongue Lateralization Within normal limits Jaw Opening Within normal limits Jaw Closing Within normal limits Hard/Soft Palate Function Within normal limits Observations of Hard/Soft Palate Within normal limits Phonation Within normal limits Comment Diadochokinesis was significantly uncoordinated and dysfluent. Pt was unable to produce 3-4 syllable strings smoothly. Recommend neurology referral give pt's history of concussions Food and Liquid Trials Position During Assessment Upright (90 degrees) Liquids Trialed Thin Solids Trialed Regular Administration Type Self-feeding Oral Impairment Within normal limits Oral Phase Comments Oral phase of swallow WNL: good rotary chew, adequate A-P transition, no oral residue observed. Pharyngeal Impairment Mildly impaired Pharyngeal Phase Comments Pt presented with an audible swallow which can indicate a lack of coordination of the pharyngeal structures. No overt s/sx were noted. No wet voicing observed. Fatigue/Endurance Endurance WNL Comment Recommend MBSS with speech Strategies Attempted Effortful swallow,Supraglottic swallow Findings Swallowing Function Within functional limits Swallowing Function Comments No cough/choke observed Severity of Swallow Impairment Mildly impaired Contributing Factors to Swallow Impaired oral-pharyngeal Impairment transport,Impaired velopharyngeal closure/ coordination,Impaired airway protection Recommendations Instrumental Assessment Yes Swallowing Treatment Yes Frequency POC to follow MBSS Recommended Solids Regular Recommended Liquids Thin Education Patient/Caregiver Education Described results of evaluation,Patient expressed understanding of evaluation, Patient expressed agreement with goals & treatment plans Goals Short-term Goals Pt will be referred for MBSS Pt will be referred to neurology re: concussions with LOC
--- NOTE | 2022-03-13 11:04 | ST.OPPOC ---
Physical, Occupational & Speech Therapy At [facility] Visit Care Team Role Provider Type Roxanne Mccoy MD Family Provider Non-Staff Primary Care Provider Address: [facility] [place], [address] Vicente Higgins MD Attending Provider Physician Referring Provider Address: [address] [place] [address], [id number] Speech Pathology Plan of Care Referring Provider Dr. Higgins, ENT; PCP is Dr. Roxanne Mccoy, at [facility] Patient History Pt is a 72 year old female seen for a clinical swallow assessment at the referral of Dr. Higgins . According to the pt, she will periodically get a sense of globus mid-chest after swallowing . She was unable to describe the foods that can result in this sensatiion. She did mention that water can result in globus as well. She also reported that she has choked in the past. Short-term Goals Pt will be referred for MBSS Pt will be referred to neurology re: concussions with LOC Comment: Electronically Signed by: NEISHA Miner 03/13/225 If you are in agreement with this Plan of Care, please return a signed and dated copy. I have reviewed this Plan of Care and certify that the skilled therapy services above are required to meet the patient?s needs. Physician Signature Date Printed Name and Credentials Clinical Instructor Signature Printed Name and Credentials
== END 2022-03-15 09:29 ==
LOC: SP 09:11
PROVIDERS: Family Provider Student in an Organized Health Care Education/Training Program; PCP Student in an Organized Health Care Education/Training Program; Referring Provider Otolaryngology; Visit Provider Otolaryngology
DX: R13.10 Dysphagia, unspecified (principal); R19.8 Other specified symptoms and signs involving the digestive system and abdomen
CPT/HCPCS: 92610